=== PATIENT | female | born 1985 | race Caucasian/White ===

== ENCOUNTER 2017-07-14 16:45 | Emergency (ER) | payer MEDICAID ==
[~2017-07-14] VITALS: Ht 152.4 cm; Wt 64.9 kg
[~2017-07-14 16:45] MED LIST: AFRIN NS; AMOXICILLI250 MG/52 PO; AMOXICILLIN 50500 MG PO; DARVOCET-N 1001 EACH PO; Mobic7.5 MG PO; NASONEX0.05 MG/AC; NOMEDS *; VOLTAREN75 MG PO
--- NOTE | 2017-07-14 17:30 | Urgent Treatment Center Report ---
History of Present Issue Date/Time Seen by Provider 07/14/171718 Visit Reason Pt arrived:Walked Presenting Problem:PT STATES SHE FELL ON A STEP AT A FRIENDS HOUSE AND INJURED RT FOOT AND ANKLE Location if Accident:Friend/Acquaintance Home Onset of symptoms date/time:07/14/17 or onset unknown for: Have you (or family members/close friends) recently traveled outside the [place]? N If Yes, where/when: Have you had exposure to infectious disease within the past month? TB? Other? Specify: c/o right foot and ankle pain. Stepped off a step, approx 8-12 inches and stepped "normal then my ankle rolled and I heard the pop". Approx 3:30 today. 400mg ibuprofen on arrival to clinic while registering. Pain w/ movement or palpation but denies a need for any further medication. Significantly limited ROM right ankle due to pain. Swelling and bruising starting. Source patient Exam Limitations clinical condition (pain) ALLERGIES Coded Allergies: NO KNOWN ALLERGIES (07/14/17) Home Medications Reported Medications No Home Medications (NO HOME MEDICATIONS) 1 X * ONCE History Medical History General CAD? No Angina: No PA: No Hypertension? No Hyperlipidemia? No CHF? No DVT? No PE? No COPD? No Asthma? No Anemia? No GERD? No Gastric ulcers? No GI Bleed? No Hernia? No Hypothyroidism? No CVA? No Seizures? No Diabetes? No UTI? No Stones? No BPH? No GB Disease: No Asplenia? No Hepatitis? No Sickle Cell Disease? No Migraines? No Cataracts? No Glaucoma? No MRSA? No TB? No Anxiety? No Depression? No Cancer? No Site: N Immunization HX DT/Tetanus > 10 YRS Surgical Hx Previous Surgery?N HO[employer] MACHINE Hx LMP 3 Months Ago Social History Smoking Hx Smoker: Never Smoker Tobacco: No Alcohol Alcohol: No Review of Systems All Other Systems Reviewed and Negative (as appropriate for CC) Musculoskeletal see HPI, denies other (leg pain) Skin see HPI Psychiatric/Neurological see HPI Physical Exam Vital Signs Vital Signs Date Time Temp Pulse Resp B/P Pulse O2 O2 Flow FiO2 Ox Delivery Rate 07/14 1713 98.2 73 20 163/90 99 General Appearance no apparent distress (while seated and still), grimacing with right foot/ankle repositioning and throughout exam, continue to refuse offer to treat pain further "I will be fine with what I took". Was willing to elevate and apply ice pack Respiratory Status No: respiratory distress. Cardiovascular no peripheral edema Peripheral Pulses Pulses normal Yes (DP/PT) Back gait abnormality (using crutches, NWB RLE) Extremities limited ROM right ankle, hesitant to wiggle right toes d/t pain but can, significant swelling right lateral ankle and mid foot w/ ecchymosis starting, TTP right medial malleous but more so right lateral malleous and mid foot Neurologic alert, no motor/sensory deficits, oriented x 3 Skin bruising (right lateral midfoot) Medical Decision Making LABS/Meds/Orders Pt receiving controlled substance in ED? No Results/Orders Orders Procedure Date/time Status STABILIZE JOINT 07/14 1803 Active XRAY/CT/US XRAY/CT/US XRAY ankle (right), foot (right) XR interpretation by reviewed by me (w/ Dr. Canchola, ER ), discussed w/ radiologist (ER MD and I called him) Xray Results avulsion fracture of calcaneus/cuboid junction laterally Procedures Orthopedic/Inj/Splint Ortho Proc/Injections/Splints Risks/benefits discussed with pt/guardian? Yes Hand-Made Type orthoglass Splint short leg Pre-Proc Neuro Vasc Exam normal Post-Proc Neuro Vasc Exam normal, unchanged from pre-exam Departure Departure Time of Disposition 1804 Disposition DC Home or Self Care(routine) Clinical Impression Primary Impression: Avulsion fracture of right calcaneus Qualifiers: Encounter type: initial encounter Calcaneus location: tuberosity Fracture type: closed Fracture alignment: displaced Qualified Code: S92.031A - Displaced avulsion fracture of tuberosity of right calcaneus, initial encounter for closed fracture Condition STABLE Referrals Elbert Rubio MD Call office in morning. Tell them you were seen in [facility] this evening and dx w/ avulsion fracture of right calcaneus/cuboid junction and were splinted and told to follow up with ortho Patient Instructions DI for Avulsion Fracture, How To Perform RICE (Rest, Ice, Compress, Elevate), How to Take Care of Your Splint Additional Instructions * nonweight bearing right foot * Rest * ice 15-20 mins 3-4 times a day * Splint until follow up with ortho. Read the how to care for your splint instructions. Monitor your toes for change in color, temp, movement and follow up immediately with any changes. * Elevate, elevate, elevate as discussed as much as possible to help reduce swelling and therefore, pain * Ibuprofen 600-800mg every 6 hours as needed for pain but also to help with swelling. If you need something more, you can take tylenol every 4 hours as needed as long as your primary care provider has told you it is ok to take both. Discharge Counseling Counseled pt/family regarding diagnosis, test results, medications/RX, home care, follow up needs at [phone] care, follow up needs
--- NOTE | 2017-07-14 18:25 | RADIOLOGY REPORT PS360 ---
FOOT-RT-3 VIEWS HISTORY: Pain FELL DOWN A STEP AT A FRIENDS HOUSE ORDERING PHYSICIAN: MAISHA DELEON APRN PATIENT AGE: 32 years COMPARISON: None FINDINGS: There is a curvilinear calcification lateral to the calcaneocuboid joint consistent with an avulsion injury. Flake-like density is present at this area.. No other significant anomalies are evident. IMPRESSION: Avulsion fracture at the calcaneal cuboid junction
--- NOTE | 2017-07-14 18:26 | RADIOLOGY REPORT PS360 ---
ANKLE-RT-3 VIEWS HISTORY: Pain following injury FELL DOWN STAIRS AT A FRIENDS HOUSE ORDERING PHYSICIAN: MAISHA DELEON APRN PATIENT AGE: 32 years COMPARISON: None FINDINGS: There is a 7 mm avulsion fracture at the calcaneal cuboid junction mildly displaced laterally x 4 mm. The ankle joint is unremarkable. IMPRESSION: Avulsion fracture of the calcaneal cuboid junction
[2017-07-14 18:44] VITALS: BP 163/90
== END 2017-07-14 18:45 | disposition home or self-care (01) ==
LOC: UTC 16:45
PROC: 2W3QX1Z Immobilization of Right Lower Leg using Splint (ICD-10-PCS; principal; 2017-07-14)
DX: S92.031A Displaced avulsion fracture of tuberosity of right calcaneus, initial encounter for closed fracture (principal); W10.9XXA Fall (on) (from) unspecified stairs and steps, initial encounter; Y92.89 Other specified places as the place of occurrence of the external cause